=== PATIENT | female | born 1970 | race Caucasian/White ===

== ENCOUNTER 2018-07-03 11:35 | Outpatient (CLI) | payer OTHER | END 2018-07-03 11:36 | disposition home or self-care (01) | LOC: C.PAT 11:35 | DX: K80.20 Calculus of gallbladder without cholecystitis without obstruction (principal) ==

== ENCOUNTER 2018-07-09 10:12 | Observation (INO) | payer OTHER ==
[~2018-07-09 10:12] MED LIST: Bupivacaine HCl 0.25% PF (10 ml) Inj ONE; Bupivacaine Liposomal Inj 20 ml INFIL ONE; Lidocaine/Epinephrine 1% 1:100000 10 ML IJ ONE; Sodium Chloride 0.9% 40 ML IV ONE; ceFAZolin 1 gm in NS 2 GM/200 ML BAG IVPB ONE
[2018-07-09 11:09] VITALS: BMI 39.7
[2018-07-09] MEDS ORDERED: Propofol 10 mg/ml Inj (20 ML) ONE ×2 (15:44→16:53)
[2018-07-09] MEDS ORDERED: Midazolam 2 MG/2 ML VIAL ONE (15:45)
[2018-07-09] MEDS ORDERED: Lactated Ringer's 1,000 ML IV ONE (17:44)
--- NOTE | 2018-07-09 17:48 | PCM.SURG1 ---
Surgeon's Initial Post Op Note - Surgeon's Notes Surgeon: Dr. Zavala Corporate Librarian: Jack [id number]; Dr. Blackmon Type of Anesthesia: General Endo, Block Regional, Local Anesthesia Administered By: Makayla Awan CRNA Pre-Operative Diagnosis: Cholelithiasis Operative Findings: See operative report Post-Operative Diagnosis: same Operation Performed: Robot-assisted Cholecystectomy; Extensive Lysis of Adhesions; Transversus Abdominus Plane Block Specimen/Specimens Removed: Gallbladder Estimated Blood Loss: EBL {In ML}: 10 Blood Products Given: N/A Drains Used: No Drains Post-Op Condition: Good Date of Surgery/Procedure: 07/09/18 Time of Surgery/Procedure: 17:48
[2018-07-09] MEDS: HYDROmorphone 0.5 mg/0.5 ml ISec IVP PRN ×3 (18:21→20:03)
[2018-07-09] MEDS ORDERED: Oxycodone/Acetaminophen 5/325 mg Tab PO PRN (20:20)
[2018-07-09] MEDS ORDERED: Lactated Ringer's 500 ML IV ONE (21:21)
[2018-07-09 22:48] VITALS: RESP 20
[2018-07-10 07:21] LABS: BASO # 0.1 K/uL (0.0-0.2); BASO % 0.5 % (0.0-2.0); EOS # 0.1 K/uL (0.0-0.7); EOS % 0.5 % (0.0-4.0); HEMOGLOBIN 10.9 g/dL (11.0-16.0); LYMPH # 2.8 K/uL (1.0-4.3); LYMPH % 23.1 % (20.0-40.0); MEAN CELL VOLUME 73.6 fL (81.0-99.0); MEAN CORPUSCULAR HGB CONC 32.6 g/dL (33.0-37.0); MEAN PLATELET VOLUME 10.5 fL (7.2-11.7); MONO % 8.3 % (0.0-10.0); NEUT # 8.3 K/uL (1.8-7.0); NEUT % 67.6 % (50.0-75.0); RBC 4.54 Mil/uL (3.80-5.20); RED CELL DISTRIBUTION WIDTH 16.2 % (11.5-14.5)
[2018-07-10 07:40] LABS: WHITE BLOOD COUNT 12.3 K/uL (4.8-10.8)
[2018-07-10 07:58] LABS: ALT/SGPT 51 U/L (9-52); AST/SGOT 51 U/L (14-36); BLOOD UREA NITROGEN 5 mg/dL (7-17); CALCIUM 8.5 mg/dl (8.6-10.4); GFR NON-AFRICAN AMERICAN > 60
[2018-07-10 08:23] LABS: ALBUMIN 3.7 g/dL (3.5-5.0)
[2018-07-10 08:29] LABS: ALB/GLOB RATIO 1.4 (1.0-2.1)
[2018-07-10 08:40] VITALS: PULSE 106
[2018-07-10] MEDS ORDERED: Pantoprazole 40 mg EC Tab PO SCH (10:00)
--- NOTE | 2018-07-10 10:41 | CP.PCM.DIS ---
Provider - Provider Date of Admission: 07/09/18 20:20 Attending physician: Timothy Zavala MD Time Spent in preparation of Discharge (in minutes): 45 Hospital Course - Lab Results Lab Results: Most Recent Lab Values WBC 12.3 K/uL (4.8-10.8) H D 07/10/18 07:03 RBC 4.54 Mil/uL (3.80-5.20) 07/10/18 07:03 Hgb 10.9 g/dL (11.0-16.0) L 07/10/18 07:03 Hct 33.4 % (34.0-47.0) L 07/10/18 07:03 MCV 73.6 fL (81.0-99.0) L 07/10/18 07:03 MCH 24.0 pg (27.0-31.0) L 07/10/18 07:03 MCHC 32.6 g/dL (33.0-37.0) L 07/10/18 07:03 RDW 16.2 % (11.5-14.5) H 07/10/18 07:03 Plt Count 326 K/uL (130-400) 07/10/18 07:03 MPV 10.5 fL (7.2-11.7) 07/10/18 07:03 Neut % (Auto) 67.6 % (50.0-75.0) 07/10/18 07:03 Lymph % (Auto) 23.1 % (20.0-40.0) 07/10/18 07:03 [place] % (Auto) 8.3 % (0.0-10.0) 07/10/18 07:03 Eos % (Auto) 0.5 % (0.0-4.0) 07/10/18 07:03 Baso % (Auto) 0.5 % (0.0-2.0) 07/10/18 07:03 Neut # (Auto) 8.3 K/uL (1.8-7.0) H 07/10/18 07:03 Lymph # (Auto) 2.8 K/uL (1.0-4.3) 07/10/18 07:03 [place] # (Auto) 1.0 K/uL (0.0-0.8) H 07/10/18 07:03 Eos # (Auto) 0.1 K/uL (0.0-0.7) 07/10/18 07:03 Baso # (Auto) 0.1 K/uL (0.0-0.2) 07/10/18 07:03 Sodium 136 mmol/L (132-148) 07/10/18 07:03 Potassium 3.9 mmol/L (3.6-5.2) 07/10/18 07:03 Chloride 99 mmol/L (98-107) 07/10/18 07:03 Carbon Dioxide 27 mmol/L (22-30) 07/10/18 07:03 Anion Gap 15 (10-20) 07/10/18 07:03 BUN 5 mg/dL (7-17) L 07/10/18 07:03 Creatinine 0.4 mg/dL (0.7-1.2) L 07/10/18 07:03 Est GFR ( Amer) > 60 07/10/18 07:03 Est GFR (Non-Af Amer) > 60 07/10/18 07:03 POC Glucose (mg/dL) 166 mg/dL (65-110) H 07/10/18 06:14 Random Glucose 147 mg/dL (65-105) H 07/10/18 07:03 Calcium 8.5 mg/dl (8.6-10.4) L 07/10/18 07:03 Phosphorus 3.6 mg/dL (2.5-4.5) 07/10/18 07:03 Magnesium 1.6 mg/dL (1.6-2.3) 07/10/18 07:03 Total Bilirubin 0.3 mg/dL (0.2-1.3) 07/10/18 07:03 AST 51 U/L (14-36) H 07/10/18 07:03 ALT 51 U/L (9-52) 07/10/18 07:03 Alkaline Phosphatase 82 U/L (38-126) 07/10/18 07:03 Total Protein 6.4 g/dL (6.3-8.3) 07/10/18 07:03 Albumin 3.7 g/dL (3.5-5.0) 07/10/18 07:03 Globulin 2.7 gm/dL (2.2-3.9) 07/10/18 07:03 Albumin/Globulin Ratio 1.4 (1.0-2.1) 07/10/18 07:03 - Hospital Course Hospital Course: 48yo F who came into via [facility] for robotic cholecystectomy. Procedure was uneventful with no immediate complications noted. Post-operatively, patient c/o of a lot of pain and was admitted overnight for observation and pain control. This morning, patient's pain is controlled and she is tolerating diet. She denies any new complaints. She is cleared for discharge home. Discussed plan with patient at length who understands and agrees. She will follow up with Dr. Zavala in office. Prescriptions written and on chart: -Percocet #10 -Colace -Miralax -Cepacol lozenges Discharge Exam - Head Exam Head Exam: ATRAUMATIC, NORMAL INSPECTION, NORMOCEPHALIC - Eye Exam Eye Exam: EOMI, Normal appearance. absent: Scleral icterus - ENT Exam ENT Exam: Mucous Membranes Moist - Cardiovascular Exam Cardiovascular Exam: RRR. absent: JVD - GI/Abdominal Exam GI & Abdominal Exam: Soft. absent: Distended, Firm, Guarding, Rebound, Rigid Additional comments: Mild lasha-incisional tenderness. Dressings clean, dry and intact. - Extremities Exam Extremities exam: normal inspection - Neurological Exam Neurological exam: Alert, Oriented x3 - Psychiatric Exam Psychiatric exam: Normal Affect, Normal Mood - Skin Skin Exam: Dry, Intact, Normal Color, Warm Discharge Plan - Follow Up Plan Condition: GOOD Disposition: HOME/ ROUTINE Additional Instructions: Cleared for discharge home 1) Follow up with Dr. Zavala in office. Call for appointment 2) Take pain meds as prescribed sparingly 3) Use bowel regimen as ordered 4) Resume all home meds 5) No heavy lifting (>15 lbs) for at least 4 weeks 6) Maintain dressing for 5 days. Okay to shower (keep dressing clean and dry) 7) Return to ED with any concerning findings. Referrals: Timothy Zavala MD [Staff Provider] -
[2018-07-10 16:51] VITALS: BP 142/84; TEMP 98.9; O2SAT 97
[2018-07-11] MEDS ORDERED: Enoxaparin 40 mg Syringe SC SCH (10:00)
--- NOTE | 2018-07-13 03:25 | OP ---
PROCEDURE DATE: 07/09/2018 PREOPERATIVE DIAGNOSES: 1. Chronic cholecystitis and cholelithiasis. 2. Postoperative adhesions, status post splenectomy. 3. Abdominal pain. POSTOPERATIVE DIAGNOSES: 1. Chronic cholecystitis and cholelithiasis. 2. Postoperative adhesions, status post splenectomy. 3. Abdominal pain. PROCEDURES DONE: 1. Robotic cholecystectomy. 2. Robotic indocyanine green fluoroscopy. 3. Robotic adhesiolysis and enterolysis. 4. Laparoscopic bilateral transversus abdominis plane block placement. SURGEON: Timothy Zavala MD ASSISTANTS: Anders Blackmon MD and Rigoberto Santiago DO, PGY-2 resident ANESTHESIA: General endotracheal tube anesthesia. ESTIMATED BLOOD LOSS: Around 10 mL. DRAIN: None. PATHOLOGY: The gallbladder with the gallstone was sent for the pathology. COMPLICATIONS: None. INTRAOPERATIVE FINDINGS: The patient had extensive midline peritoneal and omental adhesions due to the previous laparoscopic splenectomy, and extensive enterolysis and lysis of adhesion was done. Approximately 20-30 minutes extra time was spent to complete the procedure. DESCRIPTION OF PROCEDURE: On intraoperative steps, this is a 48-year-old female who was diagnosed with chronic cholecystitis and cholelithiasis. The patient was consented for the robotic cholecystectomy, possible open with adhesiolysis and lysis of adhesions due to previous splenectomy. The patient was brought to the OR, placed supine on the operating room table. After induction of the anesthesia, the abdomen was prepped and draped in the usual sterile fashion. A supraumbilical transverse incision was made using the open technique. Peritoneal cavity was entered and pneumo was created. Another 3-8 mm port was placed in upper abdomen. The patient was found to have extensive peritoneal adhesions in the upper abdomen. First, adhesiolysis was done in order to advance the instruments towards the right upper quadrant. After extensive adhesiolysis and lysis of adhesions, the gallbladder was retracted cranially. Calot's triangle dissection was done. The cystic duct and cystic artery were identified. Intraoperative Firefly was used to identify the ductal anatomy. Cystic duct and cystic artery were identified. The cystic duct and common bile duct junction were also identified. The cystic duct and cystic artery were clipped at three places and cut in between two clips in the gallbladder. The gallbladder was dissected free from the gallbladder fossa, taken into an EndoCatch bag, taken out through the umbilical port site and sent off to the table for pathology. Now, the laparoscopic bilateral TAP block was given. The 30:30 mL of Exparel with saline was injected into the transverse abdominis muscle plane area. After proper TAP block, all the ports were taken out under vision and pneumo was deflated. The umbilical port site was closed in two layers, the fascia with 0-Vicryl interrupted suture and skin with a 4-0 Monocryl, and dry sterile dressing was applied. The patient tolerated the procedure well. Count of instrument and gauze was correct. There were no apparent complications. The patient was extubated in the OR, sent to the postanesthesia care unit in stable condition. Timothy Zavala MD
== END 2018-07-10 17:32 | disposition home or self-care (01) ==
LOC: C.SDS 10:12 → C.9E 20:20 → C.6T 21:39
PROVIDERS: ADMIT Surgery Surgical Critical Care; ATTEND Surgery Surgical Critical Care
DX: K80.10 Calculus of gallbladder with chronic cholecystitis without obstruction (principal); G89.18 Other acute postprocedural pain; I10 Essential (primary) hypertension; E11.9 Type 2 diabetes mellitus without complications; K66.0 Peritoneal adhesions (postprocedural) (postinfection); Z90.81 Acquired absence of spleen
CPT/HCPCS: 31500; 36415; 47562; 80053; 82948; 83735; 84100; 85025; 88304; 94002; G0378; J0690; J1170; J2250; J2270; J2405; J2704; J3010; J7040; J7120